=== PATIENT | male | born 1945 | race Caucasian/White ===

== ENCOUNTER 2016-12-10 12:45 | Emergency (ER) | payer MEDICARE ==
[2016-12-10 12:45] VITALS: BMI 27.2
[2016-12-10 12:57] VITALS: TEMP 98.1
[2016-12-10 13:47] LABS: AUTOMATED BASOPHIL 0.7 % (0-2); AUTOMATED EOSINOPHIL 2.1 % (0-5); AUTOMATED LYMPH 14.7 % (17-44); AUTOMATED MONOCYTE 7.1 % (3-10); AUTOMATED NEUTROPHIL 75.4 % (45-76); MPV 7.9 fL (7.4-10.4)
[2016-12-10 13:58] LABS: BLOOD UREA NITROGEN 34 MG/DL (9-20); CALCIUM 9.8 MG/DL (8.4-10.2); CALCULATED OSMOLALITY 291 MOs/Kg (270-290); CHLORIDE 109 mEq/L (98-107); GLUCOSE 109 MG/DL (70-99); SODIUM LEVEL 147 mEq/L (137-146); TOTAL PROTEIN 7.4 G/DL (6.3-8.2)
[2016-12-10 14:00] LABS: PARTIAL THROMB. TIME 22.6 SEC (22-35)
--- NOTE | 2016-12-10 14:11 | DIRPT ---
CLINICAL DATA: Altered mental status EXAM: PORTABLE CHEST 1 VIEW COMPARISON: 10/03/2016 FINDINGS: Emphysema. The patient is rotated to the right on today's radiograph, reducing diagnostic sensitivity and specificity. Chronic biapical pleural parenchymal scarring. Costophrenic angles inadvertently excluded despite repeat imaging. Heart size within normal limits. IMPRESSION: 1. Emphysema with biapical pleural parenchymal scarring. 2. Mildly reduced sensitivity due to rightward rotation and exclusion of the costophrenic angles. Electronically Signed By: Isak Rodriguez M.D. On: 12/10/2016 14:09
[2016-12-10 14:12] LABS: LEUKOCYTES/URINE NEG (NEGATIVE); NITRITE/URINE NEG (NEGATIVE); RBC/URINE 0-2 (0-2); URINE OCCULT BLOOD NEG (NEG/TRACE); WBC/URINE 0-2 (0-2)
--- NOTE | 2016-12-10 14:30 | EDPRACDOC ---
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 C/o laceration to left eyebrow from a fall. There was apparently no LOC. Pt does not answer questions at baseline, and does not here. Med hx= alzheimers, HTN, lack of coordination, hypothyroidsim, paroxysmal Afib , disabliity. Not on anticoags. Pt Injuries/Pain Location: Reports: face (3cm lac left eyebrow) Reason for Fall: Reports: unknown Loss of Consciousness: no loss of consciousness Allergies/Adverse Reactions: Allergies No Known Allergies Allergy (Verified 12/10/16 12:57) Home Medications: Ambulatory Orders Abh Gel 1 ml TOP BID 10/03/16 Acetaminophen [Mapap] 500 mg PO TID 10/03/16 Albuterol Sulfate [Ventolin Hfa] 1 - 2 puff INH Q6H PRN 10/03/16 Alprazolam [Xanax] 0.5 mg PO Q6H PRN 10/03/16 Aspirin (Enteric Coated) [Ecotrin] 81 mg PO DAILY 10/03/16 Diltiazem HCl [Diltiazem 24Hr ER] 180 mg PO BID 10/03/16 Lorazepam [Ativan] 2 mg IM DAILY PRN 10/03/16 Losartan Potassium 50 mg PO DAILY 10/03/16 Methimazole [Tapazole] 10 mg PO DAILY 10/03/16 Metoprolol Succinate [Toprol Xl] 50 mg PO BID 10/03/16 Mirtazapine 7.5 mg PO QHS 10/03/16 Tramadol HCl 50 mg PO DAILY PRN 10/03/16 Quetiapine Fumarate [Seroquel] 50 mg PO QHS 12/10/16 ED Past Medical History - History Reviewed Yes Nurses notes reviewed and agree except as marked - Patient Medical History Neurological History: Reports: Dementia Cardiac History: Reports: Atrial Fibrillation, Hypertension Psychological History: Denies: Depression - Social Medical History Smoking Status: Current status unknown EDM Review of Systems - Review of Systems ROS Negative Except as Marked: Yes All systems reviewed and were negative except as marked Integumentary: Other (3cm lac to left eyebrow) Psychiatric: Other (ams) - Physical Exam Constitutional: No apparent distress Oriented to: Not Oriented Last recorded Vital Signs: Last Vital Signs Temp 98.1 F 12/10/16 12:54 Pulse 78 12/10/16 13:23 Resp 18 12/10/16 13:23 BP 101/55 L 12/10/16 13:23 Pulse Ox 96 12/10/16 13:23 Oxygen Pulse Oxygen Saturation 96 O2 Device Oxygen Flow Rate Fraction of Inspired Oxygen ( FIO2) - HEENT Head: Normal Eye Exam: negative: Conjunctival Injection, Scleral Icterus Oropharynx: negative: Drooling TMJ: Normal Nose: No Symptoms Reported Neck: Normal - Respiratory/Cardiovascular Respiratory: Normal - CTA Cardiovascular: Normal - GI Tenderness: Non tender - Musculoskeletal Back: Normal Extremities: Normal - Integumentary Skin: Normal - Neurologic Mood Description: Calm ED Injury/Fall Exam - Physical Exam Head Injury: other (3cm laceration to left eyebrow, with mikld swelling and tenderness) Extremity Exam: no evidence of injury Skin: Normal - [place] Coma Score Best Eye Response ([place]): (4) open spontaneously Best Verbal Response ([place]): (4) confused conversation Best Motor Response ([place]): (6) obeys commands Anshu Total: 14 ED Procedures - Suture/Laceration Suture #1 Left Upper Medial Face Wound Length (cm): 3 Wound's Depth, Shape: superficial Wound Explored: clean Irrigated w/ Saline (ccs): 50 Betadine Prep?: Yes Anesthesia: Lidocaine w/ Epi (2%) Volume Anesthetic (ccs): 5 Wound Debrided: minimal Wound Undermining: minimal Wound Margins: Revised Wound Repaired With: Sutures Suture Size/Type: 6:0, prolene Number of Sutures: 3 Layer Closure?: No Sterile Dressing Applied?: No Splint Applied?: No Sling Applied?: No - Results 12/10/16 13:40 12/10/16 13:40 WBC 10.3 xk/uL (3.8-10.8) 12/10/16 13:40 RBC 5.15 xM/uL (4.70-6.10) 12/10/16 13:40 Hgb 14.9 g/dL (14.0-18.0) 12/10/16 13:40 Hct 45.4 % (42-52) 12/10/16 13:40 MCV 88 fL (80-94) 12/10/16 13:40 MCH 29.0 pg (27-32) 12/10/16 13:40 MCHC 32.9 g/dl (33-36) L 12/10/16 13:40 RDW 14.0 % (11.5-14.5) 12/10/16 13:40 Plt Count 267 xk/uL (130-400) 12/10/16 13:40 MPV 7.9 fL (7.4-10.4) 12/10/16 13:40 Neut % (Auto) 75.4 % (45-76) 12/10/16 13:40 Lymph % (Auto) 14.7 % (17-44) L 12/10/16 13:40 [place] % (Auto) 7.1 % (3-10) 12/10/16 13:40 Eos % (Auto) 2.1 % (0-5) 12/10/16 13:40 Baso % (Auto) 0.7 % (0-2) 12/10/16 13:40 Absolute Neuts (auto) 7.73 xk/uL (1.7-8.2) 12/10/16 13:40 Absolute Lymphs (auto) 1.44 xk/uL (0.65-4.75) 12/10/16 13:40 PT 10.7 SEC (9.2-11.2) 12/10/16 13:40 INR 1.0 12/10/16 13:40 APTT 22.6 SEC (22-35) 12/10/16 13:40 Sodium 147 mEq/L (137-146) H 12/10/16 13:40 Potassium 4.7 mEq/L (3.5-5.1) 12/10/16 13:40 Chloride 109 mEq/L (98-107) H 12/10/16 13:40 Carbon Dioxide 27 mMOL/L (22-33) 12/10/16 13:40 Anion Gap 16 mEq/L (8-16) 12/10/16 13:40 BUN 34 MG/DL (9-20) H 12/10/16 13:40 Creatinine 1.30 MG/DL (0.66-1.25) H 12/10/16 13:40 Estimated GFR (MDRD) 54 mL/min (>=60) L 12/10/16 13:40 Glucose 109 MG/DL (70-99) H 12/10/16 13:40 Calculated Osmolality 291 MOs/Kg (270-290) H 12/10/16 13:40 Calcium 9.8 MG/DL (8.4-10.2) 12/10/16 13:40 Total Bilirubin 1.0 MG/DL (0.2-1.3) 12/10/16 13:40 AST 54 IU/L (17-59) 12/10/16 13:40 ALT 64 IU/L (21-72) 12/10/16 13:40 Alkaline Phosphatase 165 IU/L (50-160) H 12/10/16 13:40 Troponin I < 0.01 ng/mL (<.04) 12/10/16 13:40 Ird-Q-Jbytnjbvste Pept 274 pg/mL (0-900) 12/10/16 13:40 Total Protein 7.4 G/DL (6.3-8.2) 12/10/16 13:40 Albumin 4.2 G/DL (3.5-5.0) 12/10/16 13:40 Urine Color Yellow 12/10/16 13:43 Urine Clarity Clear 12/10/16 13:43 Urine pH 5.0 (5.0-8.0) 12/10/16 13:43 Ur Specific [place] 1.030 (1.003-1.035) 12/10/16 13:43 Urine Protein Neg (NEG/TRACE) 12/10/16 13:43 Urine Glucose (UA) Neg (NEGATIVE) 12/10/16 13:43 Urine Ketones Neg (NEGATIVE) 12/10/16 13:43 Urine Occult Blood Neg (NEG/TRACE) 12/10/16 13:43 Urine Nitrite Neg (NEGATIVE) 12/10/16 13:43 Urine Bilirubin Neg (NEGATIVE) 12/10/16 13:43 Urine Urobilinogen 4 MG/DL (0-1) H 12/10/16 13:43 Ur Leukocyte Esterase Neg (NEGATIVE) 12/10/16 13:43 Urine RBC 0-2 (0-2) 12/10/16 13:43 Urine WBC 0-2 (0-2) 12/10/16 13:43 Urine Bacteria Few (NEG/FEW) 12/10/16 13:43 Hyaline Casts 0-2 (0-2) 12/10/16 13:43 Urine Mucus Sm amt (NEG/OCC) 12/10/16 13:43 Lab Results 12/10/16 12/10/16 12/10/16 13:43 13:40 13:40 WBC 10.3 RBC 5.15 Hgb 14.9 Hct 45.4 MCV 88 MCH 29.0 MCHC 32.9 L RDW 14.0 Plt Count 267 MPV 7.9 Neut % (Auto) 75.4 Lymph % (Auto) 14.7 L [place] % (Auto) 7.1 Eos % (Auto) 2.1 Baso % (Auto) 0.7 Absolute Neuts (auto) 7.73 Absolute Lymphs (auto) 1.44 PT 10.7 INR 1.0 APTT 22.6 Sodium Potassium Chloride Carbon Dioxide Anion Gap BUN Creatinine Estimated GFR (MDRD) Glucose Calculated Osmolality Calcium Total Bilirubin AST ALT Alkaline Phosphatase Troponin I Clq-N-Nqhyxxcztks Pept Total Protein Albumin Urine Color Yellow Urine Clarity Clear Urine pH 5.0 Ur Specific [place] 1.030 Urine Protein Neg Urine Glucose (UA) Neg Urine Ketones Neg Urine Occult Blood Neg Urine Nitrite Neg Urine Bilirubin Neg Urine Urobilinogen 4 H Ur Leukocyte Esterase Neg Urine RBC 0-2 Urine WBC 0-2 Urine Bacteria Few Hyaline Casts 0-2 Urine Mucus Sm amt 12/10/16 13:40 WBC RBC Hgb Hct MCV MCH MCHC RDW Plt Count MPV Neut % (Auto) Lymph % (Auto) [place] % (Auto) Eos % (Auto) Baso % (Auto) Absolute Neuts (auto) Absolute Lymphs (auto) PT INR APTT Sodium 147 H Potassium 4.7 Chloride 109 H Carbon Dioxide 27 Anion Gap 16 BUN 34 H Creatinine 1.30 H Estimated GFR (MDRD) 54 L Glucose 109 H Calculated Osmolality 291 H Calcium 9.8 Total Bilirubin 1.0 AST 54 ALT 64 Alkaline Phosphatase 165 H Troponin I < 0.01 Znb-M-Dncyvkfzpsw Pept 274 Total Protein 7.4 Albumin 4.2 Urine Color Urine Clarity Urine pH Ur Specific [place] Urine Protein Urine Glucose (UA) Urine Ketones Urine Occult Blood Urine Nitrite Urine Bilirubin Urine Urobilinogen Ur Leukocyte Esterase Urine RBC Urine WBC Urine Bacteria Hyaline Casts Urine Mucus - EKG EKG #1 EKG Time: 13:24 -: Yes EKG interpreted by me Rate: bpm: 75 Rhythm: Afib Block: None Hypertrophy: None ST: Normal Comparison: 10/03/16 (sinus princess) - Diagnostic Imaging Head Image interpreted by: Radiologist EXAM: CT HEAD WITHOUT CONTRAST CT CERVICAL SPINE WITHOUT CONTRAST TECHNIQUE: Multidetector CT imaging of the head and cervical spine was performed following the standard protocol without intravenous contrast. Multiplanar CT image reconstructions of the cervical spine were also generated. COMPARISON: 11/08/2016 FINDINGS: CT HEAD FINDINGS The bony calvarium is intact. Mucosal changes are again noted within the maxillary antrum. Chronic bilateral nasal bone fractures are seen. No other fracture is identified. Mild atrophic changes and chronic white matter ischemic change is noted. The overall appearance is stable from the prior exam. No findings to suggest acute hemorrhage, acute infarction or space-occupying mass lesion are noted. CT CERVICAL SPINE FINDINGS Seven cervical segments are well visualized. Osteophytic changes are noted most prominent at C5-6 and C6-7. Facet hypertrophic changes with associated neural foraminal narrowing are seen. Bilateral carotid calcifications right greater than left are noted. No acute fracture or acute facet abnormality is noted. The surrounding soft tissues are within normal limits. The visualized lung apices are unremarkable. IMPRESSION: CT of the head: Chronic atrophic and ischemic changes. Chronic nasal bone fractures. No acute abnormality is noted. CT of the cervical spine: Degenerative changes without acute abnormality. Electronically Signed By: Buster Mccain M.D. On: 12/10/2016 14:27 Chest Image interpreted by: Radiologist EXAM: PORTABLE CHEST 1 VIEW COMPARISON: 10/03/2016 FINDINGS: Emphysema. The patient is rotated to the right on today's radiograph, reducing diagnostic sensitivity and specificity. Chronic biapical pleural parenchymal scarring. Costophrenic angles inadvertently excluded despite repeat imaging. Heart size within normal limits. IMPRESSION: 1. Emphysema with biapical pleural parenchymal scarring. 2. Mildly reduced sensitivity due to rightward rotation and exclusion of the costophrenic angles. Electronically Signed By: Isak Rodriguez M.D. On: 12/10/2016 14:09 C-spine Image interpreted by: Radiologist EXAM: CT HEAD WITHOUT CONTRAST CT CERVICAL SPINE WITHOUT CONTRAST TECHNIQUE: Multidetector CT imaging of the head and cervical spine was performed following the standard protocol without intravenous contrast. Multiplanar CT image reconstructions of the cervical spine were also generated. COMPARISON: 11/08/2016 FINDINGS: CT HEAD FINDINGS The bony calvarium is intact. Mucosal changes are again noted within the maxillary antrum. Chronic bilateral nasal bone fractures are seen. No other fracture is identified. Mild atrophic changes and chronic white matter ischemic change is noted. The overall appearance is stable from the prior exam. No findings to suggest acute hemorrhage, acute infarction or space-occupying mass lesion are noted. CT CERVICAL SPINE FINDINGS Seven cervical segments are well visualized. Osteophytic changes are noted most prominent at C5-6 and C6-7. Facet hypertrophic changes with associated neural foraminal narrowing are seen. Bilateral carotid calcifications right greater than left are noted. No acute fracture or acute facet abnormality is noted. The surrounding soft tissues are within normal limits. The visualized lung apices are unremarkable. IMPRESSION: CT of the head: Chronic atrophic and ischemic changes. Chronic nasal bone fractures. No acute abnormality is noted. CT of the cervical spine: Degenerative changes without acute abnormality. Electronically Signed By: Buster Mccain M.D. On: 12/10/2016 14:27 Decision Time to Discharge: 17:23 - Departure Disposition: Half-Way Facility Condition: Stable Final Diagnosis: Altered mental status Qualifiers: Altered mental status type: unspecified Qualified Code(s): R41.82 - Altered mental status, unspecified Dementia Qualifiers: Dementia type: unspecified type Dementia behavioral disturbance: without behavioral disturbance Qualified Code(s): F03.90 - Unspecified dementia without behavioral disturbance Fall with injury Qualifiers: Encounter type: initial encounter Qualified Code(s): W19.XXXA - Unspecified fall, initial encounter Instructions: Laceration on the Face, RICE: Routine Care for Injuries Referrals: Jesse Hui MD [Primary Care Provider] - One Week Prescriptions: No Action Tramadol HCl 50 mg PO DAILY PRN PRN Reason: Pain Albuterol Sulfate [Ventolin Hfa] 1 - 2 puff INH Q6H PRN PRN Reason: Shortness Of Breath Lorazepam [Ativan] 2 mg IM DAILY PRN PRN Reason: ANXIETY/BEHAVIOR PROBLEMS Alprazolam [Xanax] 0.5 mg PO Q6H PRN PRN Reason: Anxiety Metoprolol Succinate [Toprol Xl] 50 mg PO BID Acetaminophen [Mapap] 500 mg PO TID Diltiazem HCl [Diltiazem 24Hr ER] 180 mg PO BID Abh Gel 1 ml TOP BID Mirtazapine 7.5 mg PO QHS Methimazole [Tapazole] 10 mg PO DAILY Losartan Potassium 50 mg PO DAILY Aspirin (Enteric Coated) [Ecotrin] 81 mg PO DAILY Quetiapine Fumarate [Seroquel] 50 mg PO QHS Additional Instructions: Follow up with primary care. Stop xanax. Maintain hydration. Return to ED for any new or worsening symptoms.
[2016-12-10] MEDS ORDERED: Lidocaine 2%-Epinephrine 1:100,000 20ml vial ONE (15:34)
[2016-12-10 16:02] VITALS: BP 100/51; PULSE 72
== END 2016-12-10 17:42 ==
LOC: ED 12:45
DX: R41.82 Altered mental status, unspecified (principal); F03.90 Unspecified dementia, unspecified severity, without behavioral disturbance, psychotic disturbance, mood disturbance, and anxiety; W19.XXXA Unspecified fall, initial encounter; Y93.9 Activity, unspecified; Y92.9 Unspecified place or not applicable; S01.112A Laceration without foreign body of left eyelid and periocular area, initial encounter
CPT/HCPCS: 12013; 36415; 70450; 71010; 72125; 80053; 81001; 83880; 84484; 85025; 85610; 85730; 93005; 96372; 99284; J3490